=== PATIENT | male | born 1960 | race Two or more races ===

== ENCOUNTER 2024-10-23 06:07 | Inpatient (IN) | payer MEDICAID ==
[~2024-10-23] VITALS: Ht 175.3 cm; Wt 90.1 kg
[~2024-10-23 06:07] MED LIST: AMLO1TAB23 PO; FENO160T PO
[2024-10-23] MEDS: ceFAZolin 2 GM/D5W100ml 100 ML IV ONE (06:42)
[2024-10-23] MEDS: VANCOMYCIN HCL 1000 MG VL ONE (06:56)
[2024-10-23] MEDS: TRANEXAMIC ACID 20 ML ONE (06:56)
[2024-10-23] MEDS: KETOROLAC TROMETH 30 MG/ML 1ML VIAL ONE (06:59)
[2024-10-23] MEDS ORDERED: MORPHINE SULF PF 5 MG/10 ML VIAL ONE ×2 (07:02→07:15)
[2024-10-23] MEDS ORDERED: MIDAZOLAM HCL 2MG/2ML 2ml VIAL (1mg/ml) ONE ×2 (07:15→07:59)
[2024-10-23] MEDS ORDERED: fentaNYL CITRATE 100 MCG/2 ML VL ONE (07:15)
[2024-10-23] MEDS: TETRACAINE 1% INJ 2 ML VIAL IJ ONE (07:25)
[2024-10-23] MEDS: SUCCINYLCHOLINE CHLORIDE 20 MG/ML 10ML VIAL IV ONE (07:26)
[2024-10-23] MEDS: CEFEPIME 1GM/ 50ML 50 ML IV ONE (07:34)
[2024-10-23] MEDS ORDERED: PROPOFOL 10 MG/ML 20 ML IV ONE (07:59)
[2024-10-23] MEDS ORDERED: DexAMETHasone SOD PHOS 10MG/1ML VIAL INJ ONE (08:14)
[2024-10-23] MEDS ORDERED: KETAMINE 50mg/ML 10ml Vial 10 ML ONE (08:27)
[2024-10-23] MEDS: EPINEPHrine HCL 1 MG/1 ML AMP ONE (08:30)
[2024-10-23] MEDS: ROPIVACAINE 0.5% (5MG/ML) 20ML AMPULE IJ ONE ×2 (08:35→08:50)
[2024-10-23] MEDS ORDERED: DexAMETHasone SOD PHOS 10MG/1ML VIAL INJ IV PRN (09:00)
[2024-10-23] MEDS ORDERED: ePHEDrine SULFATE 50 MG/ML AMP IV PRN (09:00)
[2024-10-23] MEDS ORDERED: MORPHINE SULFATE 4 MG/ML SYR/VIAL IV PRN (09:00)
[2024-10-23] MEDS ORDERED: MIDAZOLAM HCL 2MG/2ML 2ml VIAL (1mg/ml) IV PRN (09:00)
[2024-10-23] MEDS ORDERED: diphenhdrAMINE HCL 50 MG/1 ML VL IV PRN (09:00)
[2024-10-23] MEDS ORDERED: hydrALAZINE HCL 20 MG/ML VL IV PRN (09:00)
[2024-10-23] MEDS ORDERED: ONDANSETRON HCL 4 MG/2 ML VIAL IV PRN (09:00)
[2024-10-23] MEDS ORDERED: oxyCODONE HCL 5MG TAB PO PRN (09:45)
[2024-10-23] MEDS ORDERED: ACETAMINOPHEN 325 MG TAB PO PRN (09:45)
--- NOTE | 2024-10-23 09:54 | DVHOP2 ---
Operative Report - 2 Report Details Date: 10/23/24 Preop Diagnosis: Left knee degenerative arthritis Postop Diagnosis: Left knee degenerative arthritis Surgeon: Anna Bolton MD Director Metabolism: Laith CARRERO Anesthesiologist: Tyrese Anesthesia: Local, Regional Drains: Tess closed wound suction Implant: DonJoy knee size eight femur PS, size seven tibial base plate, size 12 polyethylene Consent: The patient was informed of the risks and benefits of the procedure. These include but are not limited to complications of anesthesia, postoperative infection, incomplete relief of symptoms, recurrence of symptoms, damage to blood vessels, nerves and tendons, deep venous thrombosis, pulmonary embolism and possible need for repeat surgery in the future. Complications: None Estimated Blood Loss: 50 cc Fluids: See anesthesia record Findings: Varus deformity, osteophytes, denuded cartilage with eburnated bone, patellar cartilage spared Indications for Surgery: Left knee degenerative arthritis with severe pain and functional impairment de spite nonoperative management Name of Procedure Performed Left total knee arthroplasty Procedure Details Procedure Details: The patient was brought to the operating room and placed on the table in the supine position after being given spinal anesthetic with adequate analgesia obtained. Surgical timeout was performed verifying patient, laterality and procedure Preop patient received IV cefepime IV Ancef and IV tranexamic acid. Tourniquet was applied to the lower extremity. Extremity was elevated, exsanguinated Esmarch, and tourniquet inflated. Lower extremity was prepped and draped in sterile fashion. Midline incision was made. Patient was having some superficial pain so at anesthesia request I injected 15 cc of 0.5% ropivacaine to augment the spinal. I then performed medial arthrotomy. I exposed the anterior medial and lateral tibial plateau and the anterior distal femur. Bovie and aqua mantis were used for hemostasis. I excised the anterior meniscal tissue with Bovie. I excised a portion of the fat pad with Bovie. The patella was everted and the knee flexed. I drilled the distal femur and suctioned the hole to reduce the risk of fat emboli. I inserted intramedullary guide with 5 degree valgus setting. I pinned the distal femoral cutting block anteriorly. Intramedullary tim was removed. Distal femoral cut was made and the block removed. I brought my attention to the tibia setting up the external cutting jig for the tibia paying attention to slope, rotation and varus valgus alignment. I set the depth and pinned the block. I used the external alignment tim to aid in checking alignment. Bone cut was made and bone removed releasing soft tissue attachments with Bovie. Cutting block removed. I then checked the extension gap and deemed adequate and removed the femur and tibia pins. I flexed the knee and applied the femoral sizing guide to the femur. I checked the size and external rotation setting at 90 degrees to Whitesides line and checking the epicondylar axis. I drilled the holes then removed the sizing guide and pin. I then tapped on the 4 in 1 cutting block and checked with the bentley wing anteriorly to make sure that I would not notch then pinned the block. Cuts were made and the block and pins were removed. Bone was removed with curved osteotome. I used a rongeur to remove any remaining osteophytes at the femur and tibia. I then used a lamina shadowgraph scale operator to open up the back alternating between the medial and lateral side. Any remaining meniscal tissue was excised with scalpel. I used curved osteotome, curette and rongeur to remove any posterior osteophytes. I injected 20 cc of 0.5% ropivacaine into the posterior capsule to augment planned adductor block. I prophylactically coagulated with aqua mantis. I then tapped on the template for the box cut and pinned it. Box cut was made and bone removed. Template and pin removed. I then tapped on the femoral trial. I then brought my attention back to the tibia sizing it. I u sed the external alignment tim to make sure that rotation and alignment were good. I made a Bovie elke at the tibial tray elke identifying rotation for later use. I tried various tibial polytrials. The patella tracked nicely without thumb pressure. I removed the trials. I pinned the tray and used the reamer and keel punch. The implants were brought into the field while bone preparation was started. I used both normal saline irrigation and the CarboJet to prepare the bone. Once cement was ready I applied cement to the tibial implant and tibial bone tapped it on and removed excess cement in usual fashion. In similar fashion I tapped on the femoral implant. I inserted the trial polyethylene and brought the knee into 30 degrees flexion. I irrigated with xperience irrigant. Once cement cured, I checked stability and range of motion as well as patella tracking. tourniquet was released and hemostasis maintained with aqua mantis. I inserted the polyethylene and again checked stability. I used a 2 grams of vancomycin half of which was placed deep and half superficial. I repaired the extensor mechanism with the knee in flexion with #1 Ethibond interrupted [id number]. Deep subcutaneous tissue was closed with 0 Vicryl. Superficial subcutaneous tissue was closed with 2-0 vicryl interrupted. Skin was closed with bridgett. I then applied the [tess closed wound suction]. Patient tolerated the procedure well and was brought to recovery room in stable condition. Condition Stable Disposition Still a Patient ANNA BOLTON MD Oct 23, 2024 09:54
[2024-10-23] MEDS ORDERED: amLODIPine BESYLATE 5 MG TAB PO SCH (10:00)
[2024-10-23 10:08] VITALS: PULSE 77; RESP 17; O2SAT 97
[2024-10-23] MEDS: HYDROmorphone HCL 2 MG/ML VL/or syr IV PRN (10:30)
--- NOTE | 2024-10-23 10:59 | DVH ---
CLINICAL INDICATION: Postop TECHNIQUE: 3 radiographic views of the left knee were obtained. Comparison: None FINDINGS/IMPRESSION: Postsurgical changes from left knee arthroplasty.
[2024-10-23] MEDS: PREGABALIN 25 MG CAP PO SCH (12:27)
[2024-10-23] MEDS: KETOROLAC TROMETH 30 MG/ML 1ML VIAL IV SCH (12:29)
--- NOTE | 2024-10-23 12:29 | DVHINCON2 ---
Date Seen: Oct 23, [address] BOLTON Allergies: Coded Allergies: NO KNOWN ALLERGIES (Unverified , 10/19/24) Home Meds Reported Medications Fenofibrate (Fenofibrate) 160 Mg Tab, 160 MG PO DAILY, TAB 10/19/24 Amlodipine Besylate (Amlodipine Besylate) 10 Mg Tab, 10 MG PO DAILY, TAB 10/19/24 Current Medications Current Medications Medications (Trade) Dose Ordered Sig/Rajesh Route PRN Reason Start Time Stop Time Status Last Admin Diphenhydramine HCl (Benadryl Injection) 25 mg Q4HP PRN IV FOR ITCHING 10/23/24 09:00 Ondansetron HCl (Zofran) 4 mg Q4HP PRN IV NAUSEA / VOMITING 10/23/24 09:00 Hydromorphone HCl (Dilaudid Injection) 0.5 mg Q15M PRN IV SEVERE PAIN (7-10 PAIN SCALE) 10/23/24 09:00 10/23/24 09:51 DC 10/23/24 10:56 Dexamethasone Sodium Phosphate (Decadron Injection) 10 mg MANAGER IMAGE PRN IV FOR ITCHING 10/23/24 09:00 10/23/24 09:51 DC Hydralazine HCl (Apresoline Injection) 5 mg Q10M PRN IV SBP>160 10/23/24 09:00 10/23/24 09:51 DC Morphine Sulfate 2 mg Q2HPRN PRN IV BREAKTHROUGH PAIN (7-10) 10/23/24 09:00 10/23/24 09:51 DC Midazolam HCl (Versed Injection) 1 mg Q10M PRN IV ANXIETY 10/23/24 09:00 10/23/24 09:51 DC Ephedrine Sulfate (ePHEDrine SULFATE) 10 mg Q10M PRN IV SBP LESS THAN 90 10/23/24 09:00 10/23/24 09:51 DC Amlodipine Besylate (Norvasc Tablet) 10 mg DAILY PO 10/23/24 10:00 Dextrose/Lactated Ringer's 1,000 ml @ 100 mls/hr Q10H IV 10/23/24 09:45 Acetaminophen (Tylenol Tablet) 650 mg Q4HP PRN PO MILD PAIN (1-3 PAIN SCALE) 10/23/24 09:45 Cefazolin Sodium/ Dextrose 50 ml @ 50 mls/hr Q8HR IV 10/23/24 14:00 10/23/24 22:59 Acetaminophen (Tylenol Tablet) 650 mg Q6HR PO 10/23/24 12:00 Ketorolac Tromethamine (Toradol Injection) 15 mg Q6HR IV 10/23/24 12:00 10/28/24 11:59 Pregabalin (Lyrica Capsule) 50 mg BID PO 10/23/24 10:00 10/23/24 12:27 Oxycodone HCl 5 mg Q4HP PRN PO MODERATE PAIN (4-6 PAIN SCALE) 10/23/24 09:45 Oxycodone HCl 10 mg Q4HP PRN PO SEVERE PAIN (7-10 PAIN SCALE) 10/23/24 09:45 Aspirin 81 mg BID PO 10/24/24 10:00 Vital Signs Vital Signs Date Time Temp Pulse Resp B/P (MAP) Pulse Ox O2 Delivery O2 Flow Rate FiO2 10/23/24 10:40 63 15 88/60 (69) 98 10/23/24 10:08 Mask 6.0 97 10/23/24 10:08 97.8 97.8 Assessment SEE DICTATED NOTE Plan discussed with: Patient Date of Service: Oct 23, 2024 Billing Provider: ART LAZCANO MD Common Visit Codes: [id number] INP/OBS CARE (HIGH) ART LAZCANO MD Oct 23, 2024 12:29
[2024-10-23] MEDS: D5W/LACTATED RINGERS 1,000 ML IV SCH (12:38)
--- NOTE | 2024-10-23 12:40 | DVHINCON2 ---
DATE OF CONSULTATION: 10/23/2024 HISTORY OF PRESENT ILLNESS: The patient is a 64-year-old gentleman who was admitted after he underwent surgery on the left knee for DJD of the knee. The patient at this time denies any significant pain. No chest pain or shortness of breath. No nausea or vomiting. REVIEW OF SYSTEMS: Review of rest of systems are otherwise currently negative. PAST MEDICAL HISTORY: Significant for hypertension, hyperlipidemia. MEDICATIONS: He takes amlodipine and fenofibrate. ALLERGIES: No known drug allergies. SOCIAL HISTORY: Denies smoking or alcohol. Lives at home with friends. FAMILY HISTORY: Negative. PHYSICAL EXAMINATION: GENERAL: The patient is awake, alert. VITAL SIGNS: Temperature of 98.4, pulse 77 per minute, blood pressure 92/76. SHEENT: Unremarkable. NECK: There is no JVD. EXTREMITIES: No pedal edema. LUNGS: Equal bilaterally. No added sounds. CARDIOVASCULAR: S1, S2 is regular, no murmurs. ABDOMEN: Soft. There is no organomegaly. NEUROLOGIC: Nonfocal. MUSCULOSKELETAL: The left knee is currently in a dressing. ASSESSMENT AND PLAN: * Hypertension, for which the patient's blood pressure medication will be held and blood pressure will be monitored. * Hyperlipidemia. * Status post left knee surgery for degenerative joint disease of the knee. The patient will be placed on pain medications and receive physical therapy. MD JAYY Husain/MATEUS TID: [id number] RECEIPT: [id number]
[2024-10-23] MEDS: ceFAZolin 2 GM/D5W50ml 50 ML IV SCH (13:43)
[2024-10-23] MEDS: ACETAMINOPHEN 325 MG TAB PO SCH ×2 (13:46→17:35)
[2024-10-23 16:27] VITALS: PULSE 74; RESP 18; O2SAT 94
[2024-10-23 17:03] VITALS: BP 102/65; PULSE 83; RESP 17; TEMP 98.1; O2SAT 96
[2024-10-23 20:00] VITALS: PULSE 85; PULSE 88; RESP 18; O2SAT 95
[2024-10-23] MEDS: oxyCODONE HCL 5MG TAB PO PRN (20:52)
[2024-10-23 21:00] VITALS: BP 104/69; PULSE 85; RESP 18; TEMP 98.1; O2SAT 95
[2024-10-24 01:00] VITALS: BP 104/63; PULSE 79; RESP 17; TEMP 98.5; O2SAT 98
[2024-10-24 05:00] VITALS: BP 93/58; PULSE 75; RESP 17; TEMP 98.2; O2SAT 95
[2024-10-24 07:21] LABS: Basophils # (auto) 0 10 ^3/uL (0-0.2); Eosinophils # (auto) 0 10 ^3/uL (0-0.8); Hematocrit 36.9 % (41.0-53.0); Hemoglobin 12.7 g/dL (13.5-17.5); Lymphocytes # (auto) 1.1 10 ^3/uL (0.4-5.4); Lymphocytes % (auto) 10.5 % (10.0-50.0); Mean Corpuscular Hemoglobin 31.6 pg (28.0-32.0); Mean Corpuscular Hgb Conc. 34.5 g/dL (32.0-36.0); Mean Corpuscular Volume 91.6 fL (80.0-100.0); Monocytes % (auto) 9.1 % (0.0-12.0); Neutrophils # (auto) 8.5 10 ^3/uL (1.6-8.6); Neutrophils % (auto) 80.4 % (37.0-80.0); Platelet Count (auto) 222 10^3/uL (140-450); Red Blood Cells 4.02 10^6/uL (4.5-5.90); Red Cell Distribution Width 13.1 % (11.8-14.3); White Blood Cell 10.5 10^3/uL (4.4-10.8)
[2024-10-24 07:32] LABS: Alanine Aminotransferase 22 U/L (7-40); Alkaline Phosphatase 60 U/L (46-116); Anion Gap 12 (5-15); Aspartate Aminotransferase 16 U/L (13-40); Calcium 9.4 mg/dL (8.7-10.4); Carbon Dioxide 23 mmol/L (20-31); Chloride 105 mmol/L (98-107); Potassium 3.6 mmol/L (3.5-5.1); Sodium 140 mmol/L (136-145)
[2024-10-24 07:33] LABS: Bilirubin, Total 0.5 mg/dL (0.2-1.0)
[2024-10-24 07:38] LABS: Glucose 124 mg/dL (74-106)
[2024-10-24 08:00] VITALS: PULSE 51; PULSE 72; PULSE 85; RESP 16; O2SAT 95
[2024-10-24 08:20] LABS: BUN/Creatinine Ratio 11.7 (10.0-20.0)
[2024-10-24] MEDS: ASPirin 81 mg TAB PO SCH (08:23)
[2024-10-24 08:24] LABS: Blood Urea Nitrogen 12 mg/dL (9-23)
[2024-10-24 09:00] VITALS: BP 113/72; PULSE 80; RESP 18; TEMP 97.5; O2SAT 97
--- NOTE | 2024-10-24 10:34 | DVHPN2 ---
Progress Note Date Seen: Oct 24, 2024 Medical Necessity Reason Pt with a Central, PICC or Fol: No Subjective Patient reports: No new complaints Review of Systems: HEENT:Normal, CVS:Normal, RESPIRATORY:Normal, GI:Normal, :Normal, MSK:Normal, NEURO:Normal Objective vital signs Vital Sign Date Time Temp Pulse Resp B/P (MAP) Pulse Ox O2 Delivery O2 Flow Rate FiO2 10/24/24 08:00 85 16 95 Room Air* 0 21 10/24/24 05:00 98.2 93/58 (70) 98.2 Total Intake and Output 10/23/24 10/23/24 10/24/24 15:00 23:00 07:00 Intake Total 100 ml 200 ml Output Total 400 ml 525 ml 675 ml Balance -400 ml -425 ml -475 ml medications Current Medications Medications Dose Ordered Sig/Rajesh Route Start Time Stop Time Status Last Admin Dose Admin Diphenhydramine HCl 25 mg Q4HP PRN IV 10/23/24 09:00 Ondansetron HCl 4 mg Q4HP PRN IV 10/23/24 09:00 Acetaminophen 650 mg Q4HP PRN PO 10/23/24 09:45 Ketorolac Tromethamine 15 mg Q6HR IV 10/23/24 12:00 10/28/24 11:59 10/24/24 05:58 15 MG Pregabalin 50 mg BID PO 10/23/24 10:00 10/24/24 08:23 50 MG Oxycodone HCl 5 mg Q4HP PRN PO 10/23/24 09:45 10/23/24 20:52 5 MG Oxycodone HCl 10 mg Q4HP PRN PO 10/23/24 09:45 Aspirin 81 mg BID PO 10/24/24 10:00 10/24/24 08:23 81 MG Acetaminophen 650 mg Q6HR PO 10/23/24 18:00 10/24/24 05:58 650 MG Examination: GENERAL:Normal, HEENT:Normal, NECK:Normal, LUNGS:Normal, CVS:Normal, ABDOMEN:Normal, MSK:Normal, MSK:Abnormal (LEFT KNEE DRESSING), SKIN:Normal, NEURO:Normal, :Normal laboratory and microbiology Laboratory Tests 10/24/24 04:50 Test 10/24/24 04:50 Range/Units Serum Glucose 124 H 74-106 mg/dL Problem List/Assessment/Plan Problem List/Assessment/Plan * Hypertension, for which the patient's blood pressure medication will be held and blood pressure will be monitored. * Hyperlipidemia. * Status post left knee surgery for degenerative joint disease of the knee. The patient will be placed on pain medications and receive physical therapy. Plan discussed with: Patient My Orders My Orders Orders - ART LAZCANO MD Procedure Category Date Status Time Discontinue Tele BUSTER 10/24/24 Verified 10:31 Transfer Orders XFER 10/24/24 Verified 10:31 Urinalysis LAB 10/24/24 Uncollected 10:31 Complete Blood Count LAB 10/25/24 Verified 06:00 Date of Service: Oct 24, 2024 Billing Provider: ART LAZCANO MD Common Visit Codes: [id number] INP/OBS CARE(HIGH) ART LAZCANO MD Oct 24, 2024 10:33
--- NOTE | 2024-10-24 12:39 | DVHDS2 ---
Discharge Summary Date of Admission Oct 23, 2024 at 09:44 Date of Discharge: Oct 24, 2024 Labs/Diagnostic Data: Laboratory Results Test 10/24/24 04:50 10/23/24 17:52 White Blood Count 10.5 10^3/uL (4.4-10.8) Red Blood Count 4.02 10^6/uL (4.5-5.90) Hemoglobin 12.7 g/dL (13.5-17.5) Hematocrit 36.9 % (41.0-53.0) Mean Corpuscular Volume 91.6 fL (80.0-100.0) Mean Corpuscular Hemoglobin 31.6 pg (28.0-32.0) Mean Corpuscular Hemoglobin Concent 34.5 g/dL (32.0-36.0) Red Cell Distribution Width 13.1 % (11.8-14.3) Platelet Count 222 10^3/uL (140-450) Mean Platelet Volume 8.7 fL (6.9-10.8) Neutrophils (%) (Auto) 80.4 % (37.0-80.0) Lymphocytes (%) (Auto) 10.5 % (10.0-50.0) Monocytes (%) (Auto) 9.1 % (0.0-12.0) Eosinophils (%) (Auto) 0.0 % (0.0-7.0) Basophils (%) (Auto) 0.0 % (0.0-2.0) Neutrophils # (Auto) 8.5 10 ^3/uL (1.6-8.6) Lymphocytes # (Auto) 1.1 10 ^3/uL (0.4-5.4) Monocytes # (Auto) 1.0 10 ^3/uL (0-1.3) Eosinophils # (Auto) 0 10 ^3/uL (0-0.8) Basophils # (Auto) 0 10 ^3/uL (0-0.2) Nucleated Red Blood Cells 0.0 % Sodium Level 140 mmol/L (136-145) Potassium Level 3.6 mmol/L (3.5-5.1) Chloride Level 105 mmol/L (98-107) Carbon Dioxide Level 23 mmol/L (20-31) Anion Gap 12 (5-15) Blood Urea Nitrogen 12 mg/dL (9-23) Creatinine 1.03 mg/dL (0.700-1.30) Glomerular Filtration Rate Calc 82 mL/min (>90) BUN/Creatinine Ratio 11.7 (10.0-20.0) Serum Glucose 124 mg/dL (74-106) Calcium Level 9.4 mg/dL (8.7-10.4) Total Bilirubin 0.5 mg/dL (0.2-1.0) Aspartate Amino Transferase (AST) 16 U/L (13-40) Alanine Aminotransferase (ALT) 22 U/L (7-40) Alkaline Phosphatase 60 U/L (46-116) Total Protein 6.0 g/dL (5.7-8.2) Albumin 4.0 g/dL (3.2-4.8) Other Laboratory Tests 10/24/24 04:50 Brief Hx & Hospital Course: Patient was brought to the hospital yesterday to undergo a left total knee arthroplasty. He tolerated the procedure well without complications and was kept overnight for postoperative observation. He has remained medically stable denying any overnight events and reports being able to get up and walk with the help of physical therapy and his walker and was able to get down the nurse's station and back to his bed with minimal discomfort. Patient is otherwise feeling well denying any other complaint or concerns during my evaluation and would like to go home. Condition at Discharge: Stable Final Diagnosis/Problems List Left knee degenerative arthritis Discharge Disposition: Home Discharge Instruct/Medications Diet: Regular Activity: See Comment Activity comment: Patient to remain weight-bearing as tolerated with the assistance of a walker. Follow Up/Referral: Instructed the patient to follow up with our office in 10-14 days for his 1st postoperative evaluation. Medications: Rx sent via our outpatient EMR system Discharge Statement: "Patient was advised to return to the ER or call 911 if any headaches, dizziness, shortness of breath, chest pain, abdominal pain, bleeding, fevers, or worsening of medical condition. Patient was counseled about treatment plan, medications, possible side effects, patientverbalized understanding. All questions were answered to the best of my ability. This discharge took greater then 30 minutes in planning, reviewing documentation, counseling the patient, and discussing with other team members." ASSESSMENT ASSESSMENT Assessment Left knee degenerative arthritis BRADEN GONZALEZ Oct 24, 2024 12:39
--- NOTE | 2024-10-24 12:42 | DVHPN2 ---
Progress Note - Dictate Date Seen: Oct 24, 2024 Medical Necessity Reason Pt with a Central, PICC or Fol: No Subjective Patient was lying comfortably in bed during my evaluation reports very mild postoperative knee pain that is being well managed with the help of pain medication. Patient reports that he was able to get up and walk with the help of physical therapy and was able to get around the nurses station is back to his bed with minimal discomfort. Patient is otherwise feeling well denying any other complaints or concerns during my evaluation and would like to go home. vital signs Vital Sign Date Time Temp Pulse Resp B/P (MAP) Pulse Ox O2 Delivery O2 Flow Rate FiO2 10/24/24 09:00 97.5 80 18 113/72 (86) 97 97.5 10/24/24 08:00 Room Air* 0 21 Total Intake and Output 10/23/24 10/23/24 10/24/24 15:00 23:00 07:00 Intake Total 100 ml 200 ml Output Total 400 ml 525 ml 675 ml Balance -400 ml -425 ml -475 ml medications Current Medications Medications Dose Ordered Sig/Rajesh Route Start Time Stop Time Status Last Admin Dose Admin Diphenhydramine HCl 25 mg Q4HP PRN IV 10/23/24 09:00 Ondansetron HCl 4 mg Q4HP PRN IV 10/23/24 09:00 Acetaminophen 650 mg Q4HP PRN PO 10/23/24 09:45 Ketorolac Tromethamine 15 mg Q6HR IV 10/23/24 12:00 10/28/24 11:59 10/24/24 11:06 15 MG Pregabalin 50 mg BID PO 10/23/24 10:00 10/24/24 08:23 50 MG Oxycodone HCl 5 mg Q4HP PRN PO 10/23/24 09:45 10/23/24 20:52 5 MG Oxycodone HCl 10 mg Q4HP PRN PO 10/23/24 09:45 Aspirin 81 mg BID PO 10/24/24 10:00 10/24/24 08:23 81 MG Acetaminophen 650 mg Q6HR PO 10/23/24 18:00 10/24/24 11:05 650 MG objective A&O x4 in no acute distress Knee range of motion grossly limited with pain on movement Caty dressing clean, dry, intact, and maintaining suction No distal edema or calf tenderness to palpation Neurovascularly intact with cap refill less than 2 seconds laboratory and microbiology Laboratory Tests 10/24/24 04:50 Test 10/24/24 04:50 Range/Units Serum Glucose 124 H 74-106 mg/dL Assessment/Plan Patient to be discharged home and advised to remain weight-bearing as tolerated with the assistance of a walker. I also advised the patient to follow up with our office in 10-14 days for his 1st postoperative evaluation and to maintain his dressings clean, dry, intact, and maintaining suction. I advised the patient to call our office if he has any questions or concerns. Rx sent via our outpatient EMR system. He understood and agreed. Plan discussed with: Patient BRADEN GONZALEZ Oct 24, 2024 12:41
[2024-10-24 12:58] VITALS: BP 127/76; PULSE 90; RESP 16; TEMP 98; O2SAT 99
[2024-10-24 13:00] VITALS: BP 137/76; PULSE 90; RESP 18; TEMP 98; O2SAT 97
[2024-10-24] MEDS ORDERED: HYDR-4072 PO (13:43)
[2024-10-24] MEDS ORDERED: ASPI1TAB20 PO (13:47)
[2024-10-29 09:57] LABS: Hepatitis B Surface Antigen Negative (Negative)
[2024-10-29 10:16] LABS: Hepatitis C Antibody Negative (Negative)
== END 2024-10-24 14:13 | disposition home or self-care (01) | DRG 326 ==
LOC: SUR 06:07 → OVERFLOW 09:44 → TELE-EAST 16:20
PROVIDERS: ADMIT Family Medicine; ATTEND Family Medicine
PROC: 0SRD0J9 Replacement of Left Knee Joint with Synthetic Substitute, Cemented, Open Approach (ICD-10-PCS; principal; 2024-10-23 07:37)
DX: M17.12 Unilateral primary osteoarthritis, left knee (principal); E78.5 Hyperlipidemia, unspecified; I10 Essential (primary) hypertension; Z79.899 Other long term (current) drug therapy
CPT/HCPCS: 36415; 73562; 80053; 85025; 86803; 86850; 86900; 86901; 87340; 97163; G0378; J0171; J0330; J1100; J1885; J2250; J2704

== ENCOUNTER 2025-07-10 09:11 | Inpatient (IN) | payer MEDICAID ==
[~2025-07-10] VITALS: Ht 175.3 cm; Wt 81.3 kg
[~2025-07-10 09:11] MED LIST changes: -AMLO1TAB23 PO; +HYDR25TA5 PO; +OMEG1CHW2 PO
[2025-07-10] MEDS ORDERED: ceFAZolin 2 GM/D5W50ml 50 ML IV ONE (09:27)
[2025-07-10] MEDS: CEFEPIME 1GM/50ML 50 ML IV ONE (09:53)
[2025-07-10] MEDS: TRANEXAMIC ACID 20 ML ONE (09:53)
[2025-07-10] MEDS ORDERED: GLYCOPYRROLATE 0.2 MG/ML 1ML VIAL ONE (11:41)
[2025-07-10] MEDS ORDERED: ONDANSETRON HCL 4 MG/2 ML VIAL ONE (11:41)
[2025-07-10] MEDS ORDERED: fentaNYL CITRATE 100 MCG/2 ML VL ONE (11:41)
[2025-07-10] MEDS ORDERED: KETAMINE 50mg/ML 1ml syringe ONE (11:41)
[2025-07-10] MEDS ORDERED: MIDAZOLAM HCL 2MG/2ML 2ml VIAL (1mg/ml) ONE (11:41)
[2025-07-10] MEDS ORDERED: PROPOFOL 10 MG/ML 20 ML IV ONE (11:41)
[2025-07-10] MEDS ORDERED: BUPIVACAINE/DEXTROSE MPF 0.75% 2 ML AMP IT ONE (11:42)
[2025-07-10] MEDS: VANCOMYCIN HCL 1000 MG VL ONE (13:18)
[2025-07-10] MEDS ORDERED: ACETAMINOPHEN 325 MG TAB PO PRN (13:30)
--- NOTE | 2025-07-10 13:37 | DVHOP2 ---
Operative Report - 2 Report Details Date: 07/10/25 Preop Diagnosis: Right knee degenerative arthritis Postop Diagnosis: Right knee degenerative arthritis Surgeon: Anna Bolton MD Paving Foreman: Laith CARRERO Anesthesiologist: Gilbert Anesthesia: Regional Drains: Tess closed wound suction, Hernandez Implant: DonJoy knee size nine right femur PS, size eight tibial base plate, size 10 poly Consent: The patient was informed of the risks and benefits of the procedure. These include but are not limited to complications of anesthesia, postoperative infection, incomplete relief of symptoms, recurrence of symptoms, damage to blood vessels, nerves and tendons, deep venous thrombosis, pulmonary embolism and possible need for repeat surgery in the future. Complications: None Estimated Blood Loss: 75 cc Fluids: See anesthesia record Findings: Valgus deformity, denuded cartilage eburnated bone osteophytes Indications for Surgery: Right knee degenerative arthritis with severe pain and functional impairment despite nonoperative management Name of Procedure Performed Right total knee arthroplasty Procedure Details Procedure Details: The patient was brought to the operating room and placed on the table in the supine position after being given spinal anesthetic with adequate analgesia obtained. Surgical timeout was performed verifying patient, laterality and pr ocedure Preop patient received IV cefepime IV Ancef and IV tranexamic acid. Tourniquet was applied to the lower extremity. Lower extremity was prepped and draped in sterile fashion. Extremity was elevated, exsanguinated Esmarch, and tourniquet inflated. Midline incision was made followed by medial arthrotomy. I exposed the anterior medial and lateral tibial plateau and the anterior distal femur. Bovie and aqua mantis were used for hemostasis. I excised the anterior meniscal tissue with Bovie. I excised a portion of the fat pad with Bovie. The patella was everted and the knee flexed. I drilled the distal femur and suctioned the hole to reduce the risk of fat emboli. I inserted intramedullary guide with 5 degree valgus setting. I pinned the distal femoral cutting block anteriorly. Intramedullary tim was removed. Distal femoral cut was made and the block removed. I brought my attention to the tibia setting up the external cutting jig for the tibia paying attention to slope, rotation and varus valgus alignment. I set the depth and pinned the block. I used the external alignment tim to aid in checking alignment. Bone cut was made and bone removed releasing soft tissue attachments with Bovie. Cutting block removed. I then checked the extension gap and deemed adequate and removed the femur and tibia pins. I flexed the knee and applied the femoral sizing guide to the fe mur. I checked the size and external rotation setting at 90 degrees to Whitesides line and checking the epicondylar axis. I drilled the holes then removed the sizing guide and pin. I then tapped on the 4 in 1 cutting block and checked with the bentley wing anteriorly to make sure that I would not notch then pinned the block. Cuts were made and the block and pins were removed. Bone was removed with curved osteotome. I used a rongeur to remove any remaining osteophytes at the femur and tibia. I then used a lamina platform attendant to open up the back alternating between the medial and lateral side. Any remaining meniscal tissue was excised with scalpel. I used curved osteotome, curette and rongeur to remove any posterior osteophytes. I prophylactically coagulated with aqua mantis. I then tapped on the template for the box cut and pinned it. Box cut was made and bone removed. Template and pin removed. I then tapped on the femoral trial. I then brought my attention back to the tibia sizing it. I used the external alignment tim to make sure that rotation and alignment were good. I made a Bovie elke at the tibial tray elke identifying rotation for later use. I tried various tibial polytrials. The patella tracked nicely without thumb pressure. I removed the trials. I pinned the tray and used the reamer and keel punch. The implants were brought into the field while bone preparation was started. I used both normal saline irrigation and the CarboJet to prepare the bone. I used the bone from the cuts to graft the femoral tunnel. Once cement was ready I applied cement to the tibial implant and tibial bone tapped it on and removed excess cement in usual fashion. In similar fashion I tapped on the femoral implant. I inserted the trial polyethylene and brought the knee into 30 degrees flexion. I irrigated with basisurge irrigant. Once cement cured, I checked stability and range of motion as well as patella tracking. tourniquet was released and hemostasis maintained with aqua mantis. I inserted the polyethylene and again checked stability. I used a 2 grams of vancomycin half of which was placed deep and half superficial. I repaired the extensor mechanism with the knee in flexion with #1 Ethibond interrupted [id number]. Deep subcutaneous tissue was closed with 0 Vicryl. Superficial subcutaneous tissue was closed with 2-0 vicryl interrupted. Skin was closed with bridgett. I then applied the [tess closed wound suction]. Patient tolerated the procedure well and was brought to recovery room in stable condition. Condition Stable Disposition Still a Patient ANNA BOLTON MD Jul 10, 2025 13:37
[2025-07-10 13:59] VITALS: O2SAT 100
[2025-07-10] MEDS ORDERED: ACETAMINOPHEN IV 1000 MG/100ML (10MG/ML) IV ONE (14:15)
--- NOTE | 2025-07-10 14:46 | DVH ---
EXAM: XY R KNEE 2V XRAY HISTORY: postop COMPARISON: XY L KNEE 3V XRAY on DOS: 10/23/24 TECHNIQUE: AP and lateral views of the right knee were performed. FINDINGS/IMPRESSION: Postoperative changes of right total knee arthroplasty without evidence of periprosthetic fracture or other complication.
--- NOTE | 2025-07-10 14:51 | DVHNC2 ---
Procedure - Right adductor canal block performed for post-operative pain after right total knee arthroplasty. Informed consent obtained. Ultrasound examination of the thigh performed. Sterile prep and drape. Time out done. Skin infiltrated with 2% lido. 4" 21G needle placed with ultrasound guidance. 20cc 0.5% ropivacaine injected incrementally with multiple negative aspirations. No paresthesias. Patient tolerated well. Will follow as needed. GLADYS MELTON MD Jul 10, 2025 14:51
[2025-07-10] MEDS: HYDROmorphone HCL 2 MG/ML VL/or syr IV PRN (16:32)
[2025-07-10 17:24] VITALS: BP 121/83; PULSE 78; RESP 18; TEMP 97.9; O2SAT 97
[2025-07-10] MEDS: ACETAMINOPHEN 325 MG TAB PO SCH (17:48)
[2025-07-10] MEDS: ceFAZolin 2 GM/D5W50ml 50 ML IV SCH (17:48)
[2025-07-10] MEDS: D5W/LACTATED RINGERS 1,000 ML IV SCH (17:52)
[2025-07-10 20:00] VITALS: RESP 18
[2025-07-10] MEDS: PREGABALIN 25 MG CAP PO SCH (20:45)
[2025-07-10 21:00] VITALS: BP 104/65; PULSE 85; RESP 17; TEMP 98.1; O2SAT 97
[2025-07-11] VITALS (7 sets, daily range): BP systolic 97–146; BP diastolic 52–91; PULSE 81–104; RESP 16–18; TEMP 36.9; O2SAT 94–98
[2025-07-11 06:30] LABS: Anion Gap 11 (5-15); Calcium 9.0 mg/dL (8.7-10.4); Carbon Dioxide 25 mmol/L (20-31)
[2025-07-11 06:31] LABS: Chloride 95 mmol/L (98-107); Potassium 3.4 mmol/L (3.5-5.1); Sodium 131 mmol/L (136-145)
[2025-07-11 06:35] LABS: BUN/Creatinine Ratio 10.6 (10.0-20.0); Blood Urea Nitrogen 10 mg/dL (9-23)
[2025-07-11 06:37] LABS: Glucose 136 mg/dL (74-106)
[2025-07-11 06:40] LABS: Hematocrit 35.6 % (41.0-53.0); Hemoglobin 12.5 g/dL (13.5-17.5); Mean Corpuscular Hemoglobin 31.3 pg (28.0-32.0); Mean Corpuscular Volume 89.0 fL (80.0-100.0); Nucleated Red Blood Cells % 0.2 %
[2025-07-11] MEDS: hydroCHLOROthiazide 25 MG TAB PO SCH (08:49)
[2025-07-11] MEDS: HYDROmorphone HCL 2 MG/ML VL/or syr IV PRN (13:40)
--- NOTE | 2025-07-11 15:06 | DVHDS2 ---
Discharge Summary Date of Admission Jul 10, 2025 at 13:29 Date of Discharge: Jul 11, 2025 Labs/Diagnostic Data: Laboratory Results Test 07/11/25 05:40 White Blood Count 10.2 10^3/uL (4.4-10.8) Red Blood Count 4.00 10^6/uL (4.5-5.90) Hemoglobin 12.5 g/dL (13.5-17.5) Hematocrit 35.6 % (41.0-53.0) Mean Corpuscular Volume 89.0 fL (80.0-100.0) Mean Corpuscular Hemoglobin 31.3 pg (28.0-32.0) Mean Corpuscular Hemoglobin Concent 35.2 g/dL (32.0-36.0) Red Cell Distribution Width 13.6 % (11.8-14.3) Platelet Count 249 10^3/uL (140-450) Mean Platelet Volume 8.3 fL (6.9-10.8) Neutrophils (%) (Auto) 86.9 % (37.0-80.0) Lymphocytes (%) (Auto) 5.1 % (10.0-50.0) Monocytes (%) (Auto) 7.9 % (0.0-12.0) Eosinophils (%) (Auto) 0.0 % (0.0-7.0) Basophils (%) (Auto) 0.1 % (0.0-2.0) Neutrophils # (Auto) 8.9 10 ^3/uL (1.6-8.6) Lymphocytes # (Auto) 0.5 10 ^3/uL (0.4-5.4) Monocytes # (Auto) 0.8 10 ^3/uL (0-1.3) Eosinophils # (Auto) 0 10 ^3/uL (0-0.8) Basophils # (Auto) 0 10 ^3/uL (0-0.2) Nucleated Red Blood Cells 0.2 % Sodium Level 131 mmol/L (136-145) Potassium Level 3.4 mmol/L (3.5-5.1) Chloride Level 95 mmol/L (98-107) Carbon Dioxide Level 25 mmol/L (20-31) Anion Gap 11 (5-15) Blood Urea Nitrogen 10 mg/dL (9-23) Creatinine 0.94 mg/dL (0.700-1.30) Glomerular Filtration Rate Calc 92 mL/min (>90) BUN/Creatinine Ratio 10.6 (10.0-20.0) Serum Glucose 136 mg/dL (74-106) Calcium Level 9.0 mg/dL (8.7-10.4) Other Laboratory Tests 07/11/25 05:40 Brief Hx & Hospital Course: Patient was brought to the hospital yesterday to undergo a right total knee arthroplasty. He tolerated the procedure well without complications and was kept overnight for postoperative observation. Patient has remained medically stable denying any overnight events and reports some postoperative knee pain that is being well managed with the help of pain medication. Patient reports that he was able to get up and walk with the help of physical therapy and his walker and was able to get down the michael around the nurses station and back to his bed yesterday as well as today albeit with some pain that is being well managed with the help of pain medication. Patient was otherwise feeling well denying any other complaints or concerns during my evaluation and is ready to go home. Condition at Discharge: Stable Final Diagnosis/Problems List Right knee degenerative arthritis Discharge Disposition: Home Discharge Instruct/Medications Diet: Regular Activity: See Comment Activity comment: Patient to remain weight-bearing as tolerated with the assistance of a walker. Follow Up/Referral: Patient to follow up with our office in 10-14 days for his 1st postoperative evaluation. Medications: Rx sent via our outpatient EMR system Scheduled Fenofibrate (Fenofibrate), 160 MG PO DAILY, (Reported) Hctz (Hydrochlorothiazide), 12.5 MG PO DAILY, (Reported) Felda 3 Fatty Acids-Felda 6 FA (Felda Dha), 1 CHW PO DAILY, (Reported) Discontinued Medications Amlodipine Besylate (Amlodipine Besylate), 10 MG PO DAILY, (Reported) Discontinued Reason: Prescription changed Discharge Statement: "Patient was advised to return to the ER or call 911 if any headaches, dizziness, shortness of breath, chest pain, abdominal pain, bleeding, fevers, or worsening of medical condition. Patient was counseled about treatment plan, medications, possible side effects, patientverbalized understanding. All questions were answered to the best of my ability. This discharge took greater then 30 minutes in planning, reviewing documentation, counseling the patient, and discussing with other team members." ASSESSMENT ASSESSMENT Assessment Right knee degenerative arthritis BRADEN GONZALEZ Jul 11, 2025 15:06
--- NOTE | 2025-07-11 15:08 | DVHPN2 ---
Progress Note - Dictate Date Seen: Jul 11, 2025 Medical Necessity Reason Pt with a Central, PICC or Fol: No Subjective Patient was lying comfortably in bed during my evaluation reports some postoperative knee pain that is being well managed with the help of pain medication. Patient reports that he was able to get up and walk with the help of physical therapy and his walker and was able to get down the michael around the nurses station and back to his bed albeit with some postoperative knee pain. Patient is otherwise feeling well denying any other complaints or concerns during my evaluation and is ready to go home. vital signs Vital Sign Date Time Temp Pulse Resp B/P (MAP) Pulse Ox O2 Delivery O2 Flow Rate FiO2 07/11/25 13:40 83 18 146/86 07/11/25 13:00 98.2 97 98.2 07/11/25 08:00 Room Air* 0 21 Total Intake and Output 07/10/25 07/10/25 07/11/25 14:59 22:59 06:59 Intake Total 100 ml 100 ml 1600 ml Output Total 200 ml Balance -100 ml 100 ml 1600 ml medications Current Medications Medications Dose Ordered Sig/Rajesh Route Start Time Stop Time Status Last Admin Dose Admin Hydrochlorothiazide 12.5 mg DAILY PO 07/11/25 10:00 07/11/25 08:49 12.5 MG Dextrose/Lactated Ringer's 1,000 ml @ 100 mls/hr Q10H IV 07/10/25 13:30 07/11/25 08:51 100 MLS/HR Acetaminophen 650 mg Q4HP PRN PO 07/10/25 13:30 Acetaminophen 650 mg Q6HR PO 07/10/25 18:00 07/11/25 12:08 650 MG Pregabalin 50 mg BID PO 07/10/25 22:00 07/11/25 08:45 50 MG Oxycodone HCl 5 mg Q4HP PRN PO 07/10/25 13:30 07/11/25 08:46 5 MG Aspirin 81 mg BID PO 07/11/25 10:00 07/11/25 08:45 81 MG Hydromorphone HCl 0.5 mg Q3HPRN PRN IV 07/11/25 13:00 07/11/25 13:40 0.5 MG objective A&O x4 in no acute distress Knee range of motion grossly limited with pain on movement Caty dressing clean, dry, intact, and maintaining suction No distal edema or calf tenderness to palpation Neurovascularly intact with cap refill less than 2 seconds laboratory and microbiology Laboratory Tests 07/11/25 05:40 Test 07/11/25 05:40 Range/Units Serum Glucose 136 H 74-106 mg/dL Assessment/Plan Patient to be discharged home and advised to remain weight-bearing as tolerated with the assistance of a walker and also advised the patient to maintain his dressing clean, dry, intact, and maintaining suction and to follow up with our office in 10-14 days for his 1st postoperative evaluation. I also advised the patient to call our office if he has any remaining questions or concerns. Rx sent via our outpatient EMR system. Patient understood and agreed. Plan discussed with: Patient BRADEN GONZALEZ Jul 11, 2025 15:08
== END 2025-07-11 19:45 | disposition home or self-care (01) | DRG 326 ==
LOC: SUR 09:11 → OVERFLOW 13:29 → WEST WING 17:31
PROVIDERS: ADMIT Orthopaedic Surgery; ATTEND Orthopaedic Surgery
PROC: 3E0T3BZ Introduction of Anesthetic Agent into Peripheral Nerves and Plexi, Percutaneous Approach (ICD-10-PCS; 2025-07-10)
PROC: 0SRC0J9 Replacement of Right Knee Joint with Synthetic Substitute, Cemented, Open Approach (ICD-10-PCS; principal; 2025-07-10 11:48)
DX: M17.11 Unilateral primary osteoarthritis, right knee (principal); G89.18 Other acute postprocedural pain
CPT/HCPCS: 36415; 73560; 80048; 85025; 86850; 86900; 86901; 97163; G0378; J2250; J2405; J2704